=== PATIENT | male | born 1950 | race Caucasian/White ===

== ENCOUNTER 2024-02-26 14:29 | Observation (INO) | payer MEDICARE, BC, SELFPAY ==
[2024-02-26] VITALS (11 sets, daily range): BP systolic 113–164; BP diastolic 55–74; PULSE 75–93; RESP 11–23; TEMP 36.4–36.5; O2SAT 92–98; BMI 44.2
--- NOTE | 2024-02-26 | DI.MRI.S_ITS ---
PROCEDURE: MR CERVICAL SPINE WO CON INDICATIONS: check cervical hardware TECHNIQUE: Noncontrast sagittal T1 spin echo and T2 fast spin echo, sagittal STIR, foraminal oblique sagittal T2 fast spin echo, and axial gradient echo or T2 fast spin echo through the cervical spine. COMPARISON: Located Within [facility], CT, CT ANGIO HEAD AND NECK, 02/26/2024, 14:31. FINDINGS: Image quality: Diagnostic. Metal artifact reduction sequences were utilized due to pain of fusion hardware, with resulting decreased signal to noise ratio. Alignment and Curvature: There is mild reversal of the normal cervical lordosis. Grade 1 anterolisthesis is seen at C3-4 measuring 3 mm. Bone Marrow: Postsurgical changes are seen from prior C5 corpectomy and anterior fusion at C4 through C6. There is associated metal artifact that obscures adjacent structures. No acute osseous edema. Spinal Cord: Visualized spinal cord has normal size and signal. No cerebellar tonsillar herniation. Paraspinous Soft Tissues: No paravertebral masses. Prevertebral soft tissues are normal in thickness. C2-C3: Disc desiccation with posterior disc-osteophyte complex and bilateral uncovertebral joint and facet hypertrophy. Findings result in mild narrowing of the spinal canal as well as moderate to severe right and moderate left neural foraminal narrowing. C3-C4: Grade 1 anterolisthesis as well as posterior disc-osteophyte complex and bilateral uncovertebral joint and facet hypertrophy. Findings result in severe narrowing of the spinal canal with effacement of the dorsal and ventral CSF spaces. No definite [id number] cord signal is seen. There is also severe bilateral neural foraminal narrowing. C4-C5: Disc desiccation and posterior disc-osteophyte complex as well as uncovertebral joint and facet hypertrophy bilaterally. Findings result in moderate to severe narrowing of the spinal canal with effacement of the dorsal and ventral CSF spaces and no abnormal cord signal. There is severe bilateral neural foraminal narrowing. C5-C6: Postsurgical changes from prior corpectomy and anterior fixation. There is posterior disc-osteophyte complex and bilateral uncovertebral joint and facet hypertrophy the result in severe narrowing of the spinal canal with effacement of the dorsal and ventral CSF spaces but no abnormal cord signal. There is moderate to severe bilateral neural foraminal narrowing. C6-C7: Loss of disc space height with posterior disc-osteophyte complex and bilateral uncovertebral joint and facet hypertrophy. Findings result in moderate to severe narrowing of the spinal canal with effacement of the dorsal and ventral CSF spaces but no abnormal cord signal intensity. There is severe bilateral neural foraminal narrowing. C7-T1: Disc desiccation and mild circumferential disc bulging as well as mild bilateral facet hypertrophy. Findings result in mild narrowing of the spinal canal and as well as moderate left and mild right neural foraminal narrowing. IMPRESSION: 1. Postsurgical changes from C5 corpectomy and anterior fixation at C4 through C6. 2. Multilevel severe degenerative disc disease and facet hypertrophy as described in the tail and body of the report. 3. High-grade spinal canal stenosis is seen at C3-4 through C6-7. No acute cord edema identified. 4. Diffuse multifocal high-grade neural foraminal narrowing throughout the cervical spine. Approved by: Roberto Tejada M.D. on 02/26/2024 at 20:37
--- NOTE | 2024-02-26 14:31 | DI.CT.S_ITS ---
PROCEDURE: CT ANGIO HEAD AND NECK INDICATIONS: ataxia TECHNIQUE: After the administration of intravenous contrast, 1 mm thick sections acquired from the aortic arch through the [place]. 3-dimensional tekzowg-ldcbywcdv-cbwegojtrx (MIP) and/or volume rendering reformats were acquired of the central intracranial vasculature and neck separately. For radiation dose reduction, the following was used: automated exposure control, adjustment of mA and/or kV according to patient size. COMPARISON: [facility], CT, CT STROKE, 02/26/2024, 14:31. FINDINGS: Image quality: Limited by bolus timing. There is venous contamination seen within the intracranial circulation. Within the neck, the proximal common carotid arteries and the proximal vertebral arteries are poorly opacified. BRAIN: CSF spaces: Ventricles are normal in size and shape. Basal cisterns are patent. No extra-axial fluid collections. Brain: No significant abnormality of the brain can be seen. Skull and face: Calvarium and facial bones appear intact, without suspicious lesions. Orbits appear normal. Sinuses: Sinuses and mastoids are clear. HEAD CT ANGIOGRAPHY: Anterior circulation: Intracranial internal carotid arteries are normal in size and flow. The flow within the paired anterior cerebral arteries is normal and symmetric. The flow within the middle cerebral arteries is normal and symmetric. The anterior communicating artery is seen. No aneurysms are seen. Posterior circulation: Visualized portions of the vertebral arteries demonstrate normal caliber, and join to form a normal appearing basilar artery. There is a prominent right posterior communicating artery seen, with an accompanying diminutive right P1 segment. This is attributed to a type origin of the right posterior cerebral artery, which is considered to be a normal developmental variant of typically no clinical consequence. The flow within the posterior cerebral arteries is normal and symmetric. No aneurysms are seen. NECK CT ANGIOGRAPHY: Carotid system: The great vessels demonstrate a conventional anatomy as they arise from the aortic arch. The origins of the common carotid arteries appear patent. The common carotid arteries demonstrate normal caliber and courses. The bifurcation regions demonstrate atherosclerotic irregularity and calcification. There is 50% narrowing seen involving the origin of the left internal carotid artery. There is a kink within the left proximal internal carotid artery, with approximately 70% narrowing, as on series 9, image 104. No gustavo hemodynamically significant stenosis can be seen on the right-side. Posterior circulation: The origins of the vertebral arteries both appear widely patent. The more superior extracranial portions of both vertebral arteries also demonstrate normal courses and calibers. They join to form a normal appearing basilar artery. Soft tissues: Visualized neck soft tissues demonstrate no suspicious abnormalities. Bones: No suspicious bony lesions. Visualized cervical spine appears normally aligned. Cervical spine fixation hardware can be seen, with corpectomy at C5, with anterior screws spanning from the inferior aspect of C4 through the inferior aspect of C6. Moderate degenerative changes can be seen. IMPRESSION: No significant intracranial arterial abnormality is seen. 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 Additional findings: Cervical spine fixation hardware Cervical spine degenerative change Any quantitative measurements of stenosis were performed using NASCET criteria. Dictated by: Srikanth Hills M.D. on 02/26/2024 at 13:52 Approved by: Srikanth Hills M.D. on 02/26/2024 at 13:55
--- NOTE | 2024-02-26 14:32 | DI.CT.S_ITS ---
PROCEDURE: CT STROKE INDICATIONS: ataxia TECHNIQUE: Noncontrast 4.5 mm thick angled axial sections acquired from the foramen magnum to the vertex, with coronal reformats. For radiation dose reduction, the following was used: automated exposure control, adjustment of mA and/or kV according to patient size. COMPARISON: [facility], CT, CT ANGIO HEAD AND NECK, 02/26/2024, 14:31. FINDINGS: Image quality: Diagnostic. CSF spaces: Basal cisterns are patent. No extra-axial fluid collections. The ventricles are symmetric in size and shape. Brain: No intracranial bleeds or masses. There is cerebral volume loss for age, with resultant ventricular and sulcal prominence. There are periventricular and deep white matter chronic small vessel ischemic changes. There is intracranial internal carotid artery atherosclerosis. Skull and face: Calvarium and visualized facial bones appear intact, without suspicious lesions. Sinuses: Visualized sinuses and mastoids are clear. IMPRESSION: No acute intracranial hemorrhage is seen. No acute intracranial pathology. Note: Case discussed by telephone with Dr. Betancourt at 2:50 p.m. [place] time on February 26, 2024. This study fulfills neurological imaging criteria for inclusion or exclusion of acute stroke therapies based on available published neurological guidelines. Dictated by: Srikanth Hills M.D. on 02/26/2024 at 13:50 Approved by: Srikanth Hills M.D. on 02/26/2024 at 13:52
[2024-02-26 14:43] LABS: Add Manual Diff / Slide Review NO; Basophils Absolute Auto 100 /uL (0-100); Basophils Percent Auto 0.8 % (0-2); Eosinophils Absolute Auto 300 /uL (0-450); Eosinophils Percent Auto 2.7 % (2-4); Hematocrit 40.9 % (41-53); Hemoglobin 13.6 g/dL (13.5-17.5); Lymphocytes Absolute Auto 2700 /uL (1100-4500); Lymphocytes Percent Auto 25.9 % (25-40); Mean Corpuscular HGB Conc 33.3 % (30-36); Mean Corpuscular Hemoglobin 29.2 PG (26-34); Mean Corpuscular Volume 87.8 fL (80-100); Monocytes Absolute Auto 1000 /uL (0-900); Neutrophils Absolute Auto 6200 /uL (1500-7000); Neutrophils Percent Auto 60.6 % (50-75); Platelet Count 313 X10^3/uL (150-400); Red Blood Cell Count 4.66 X10^6/uL (4.5-5.9); Red Cell Distribution Width 15.1 % (11.6-14.8); White Blood Cell Count 10.3 X10^3/uL (4.5-11.0)
[2024-02-26 14:48] LABS: INR 0.9 (0.9-1.3); Prothrombin Time 10.6 SECONDS (9.4-12.5)
[2024-02-26 14:51] LABS: PTT Partial Thromboplastin Tim 29 SECONDS (25.1-36.5)
[2024-02-26] MEDS: SODIUM CHLORIDE 0.9% 500 ML 1000 ML IV (14:55)
[2024-02-26 15:02] LABS: Alanine Aminotransferase 22 IU/L (<50); Albumin 4.9 g/dL (3.5-5.0); Albumin Globulin Ratio 1.6 (1.0-2.8); Alkaline Phosphatase 64 U/L (38-126); Aspartate Aminotransferase 26 IU/L (17-59); Bilirubin Total 0.5 mg/dL (0.2-1.3); Blood Urea Nitrogen 37 mg/dL (9-20); Calcium 9.3 mg/dL (8.4-10.2); Carbon Dioxide 18 mmol/L (22-32); Chloride 107 mmol/L (98-107); Creatine Kinase 189 U/L (55-170); Estimated Glomerular Filt Rate 33 mL/min (>60); Globulin 3.1 g/dL (1.7-4.1); Glucose 153 mg/dL (80-110); HEMOLYSIS 24 (0-50); Sodium 140 mmol/L (137-145)
[2024-02-26 15:12] LABS: Troponin I < 0.012 ng/mL (0.01-0.034)
[2024-02-26] MEDS: ASPIRIN EC 325 MG TABLET PO (15:42)
[2024-02-26] MEDS: CLOPIDOGREL 75 MG TABLET 300 MG PO (15:42)
--- NOTE | 2024-02-26 16:26 | ED.NEUROSD ---
HPI - Neuro Symptoms/Deficit General Chief Complaint: Neuro Symptoms/Deficit Stated Complaint: stroke--cant stand Time Seen by Provider: 02/26/24 14:31 Source: patient and EMS Mode of arrival: EMS History of Present Illness HPI Narrative: Patient brought in by ambulance for dizziness ataxia. Symptoms have improved. Blood sugar 137. No prior history of stroke. Patient states he got up to go outside while visiting friends. He states he felt dizzy. Nauseous. Did not feel like the room was spinning or he was spinning. Just felt like his legs would not work. Symptoms now have resolved. Fast exam is negative. Patient did have vomiting with EMS. Now has resolved. Code stroke was activated On Anticoagulants: No Related Data Home Medications Medication Instructions Recorded Confirmed diclofenac sodium 1 % topical gel 2 g topical QID 02/26/24 02/26/24 diclofenac sodium 75 mg 75 mg PO BID 02/26/24 02/26/24 tablet,delayed release famotidine 20 mg tablet 20 mg PO DAILY 02/26/24 02/26/24 gabapentin 300 mg capsule 300 mg PO BID 02/26/24 02/26/24 latanoprost 0.005 % eye drops 1 drp EYE-BOTH BEDTIME 02/26/24 02/26/24 lisinopril 40 mg tablet 40 mg PO DAILY 02/26/24 02/26/24 metformin 1,000 mg tablet 1,000 mg PO BID 02/26/24 02/26/24 omeprazole 20 mg capsule,delayed 20 mg PO DAILY 02/26/24 02/26/24 release pravastatin 20 mg tablet 20 mg PO BEDTIME 02/26/24 02/26/24 Previous Rx's Medication Instructions Recorded aspirin 81 mg tablet,delayed 81 mg PO DAILY #30 tabs 02/27/24 release clopidogrel 75 mg tablet 75 mg PO DAILY 19 days #19 tabs 02/27/24 Allergies Allergy/AdvReac Type Severity Reaction Status Date / Time Sulfa (Sulfonamide Allergy Verified 02/26/24 14:56 Antibiotics) sulfamethoxazole Allergy Verified 02/26/24 14:56 [From Bactrim] trimethoprim [From Bactrim] Allergy Verified 02/26/24 14:56 Review of Systems Review of Systems Narrative: GENERAL: negative chills, fatigue, malaise, fever, sweats. HEENT: negative sinus pain, ear pain, sore throat RESPIRATORY: negative dyspnea, cough CARDIOVASCULAR: negative chest pain, palpitations GASTROINTESTINAL: negative nausea, vomiting, abdominal pain : negative dysuria, frequency, hematuria MUSCULOSKELETAL: negative muscle or bony pain SKIN: negative rash, skin lesions NEUROLOGIC: negative weakness, numbness, positive dizziness no slurred speech no facial droop ROS Unobtainable: All systems reviewed & are unremarkable except as noted in HPI and below Hematologic/Lymphatic On Anticoagulants: No Patient History Medical History (Updated 02/26/24 @ 17:44 by Vernell Sarah RN) Ocular hypertension Hypertension Diabetes mellitus Hyperlipemia Skin cancer Bladder cancer Carpal tunnel syndrome, bilateral Rotator cuff arthropathy of right shoulder Neck problem Surgical History (Updated 02/26/24 @ 17:41 by Vernell Sarah RN) Status post prostatectomy Status post fusion of wrist History of ankle fusion History of total knee arthroplasty Status post hip replacement Social History household members: spouse Smoking Status: Former smoker alcohol intake: current Smoking Status: Former smoker alcohol intake frequency: a few times a week Substance Use Type: does not use Exam Narrative Exam Narrative: GENERAL: in no distress, not toxic not dyspneic HEAD: Normocephalic. EYES: Pupils equal round ENT: Mucous membranes moist. NECK: Trachea midline. CARDIOVASCULAR: Regular rate and rhythm RESPIRATORY: Clear to auscultation. Breath sounds equal bilaterally. No wheezes, rales, or rhonchi. GASTROINTESTINAL: Abdomen soft, non-tender EXTREMITIES: No gross deformities. BACK: No flank tenderness. NEURO: AOx4. Clear speech no facial droop. ?Light touch intact to bilateral face hands and feet. 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 ?Strong bilateral patellar reflexes. ?No pronator drift. ?Ncojrz-pr-btjo intact bilaterally. Gcdj-qb-ionz intact bilaterally but feels weaker with left heel. SKIN: Warm and dry PSYCH: Not anxious, is cooperative Initial Vital Signs Initial Vital Signs: Vital Signs Temperature 97.6 F 02/26/24 14:28 Pulse Rate 90 02/26/24 14:28 Respiratory Rate 20 02/26/24 14:28 Blood Pressure 164/73 H 02/26/24 14:28 Pulse Oximetry 95 02/26/24 14:28 Oxygen Delivery Method Room Air 02/26/24 14:28 Scores NIH Stroke Scale Level of Conciousness: Alert, keenly responsive Ask month/age: Answers both questions correctly. Open/close eyes, close hand: Performs both tasks correctly Best gaze horizontal: Normal Visual forde: No visual loss Facial palsy: Normal symetrical movement Left arm drift: No drift for full 10 sec Right arm drift: No drift for full 10 sec Left leg drift: No drift for full 5 sec Right leg drift: No drift for full 5 sec Limb ataxia: Present in one limb Sensory on face/arms/legs: Normal, no sensory loss Best language: No aphasia, normal Dysarthria: Normal Extinction or inattention: No abnormality Total NIH Stroke scale score: 1 Course Orders Ordered: Discontinued Medications Acetaminophen (Acetaminophen 325 Mg Tablet) 650 mg PO Q6H PRN PRN Reason: Fever/Mild Pain (1-3) Aspirin (Aspirin Ec 325 Mg Tablet) 325 mg PO NOW ONE Stop: 02/26/24 15:12 Last Admin: 02/26/24 15:42 Dose: 325 mg Documented By: LUCÍA Aspirin (Aspirin Ec 81 Mg Tablet) 81 mg PO DAILY [facility] Last Admin: 02/27/24 08:21 Dose: 81 mg Documented By: JUMANA Atorvastatin Calcium (Atorvastatin 20 Mg Tablet) 40 mg PO BEDTIME [facility] Last Admin: 02/26/24 21:57 Dose: 40 mg Documented By: BLACK Clopidogrel Bisulfate (Clopidogrel 75 Mg Tablet) 300 mg PO NOW ONE Stop: 02/26/24 15:12 Last Admin: 02/26/24 15:42 Dose: 300 mg Documented By: LUCÍA Clopidogrel Bisulfate (Clopidogrel 75 Mg Tablet) 75 mg PO DAILY [facility] Stop: 03/18/24 08:59 Last Admin: 02/27/24 08:21 Dose: 75 mg Documented By: JUMANA Diclofenac Sodium (Diclofenac 1% Gel 100 Gm) 1 applic TOP QID [facility] Last Admin: 02/27/24 10:45 Dose: Not Given Documented By: JUMANA Famotidine (Famotidine 20 Mg Tablet) 20 mg PO DAILY [facility] Last Admin: 02/27/24 08:21 Dose: 20 mg Documented By: JUMANA Gabapentin (Gabapentin 300 Mg Capsule) 300 mg PO BID [facility] Last Admin: 02/27/24 08:21 Dose: 300 mg Documented By: Admin: 02/26/24 21:57 Dose: 300 mg Documented By: BLACK Heparin Sodium (Porcine) (Heparin 5,000 Unit/Ml Vial) 5,000 unit SUBCUT BID [facility] Last Admin: 02/27/24 08:22 Dose: 5,000 unit Documented By: Admin: 02/26/24 21:57 Dose: 5,000 unit Documented By: BLACK Sodium Chloride (Normal Saline 0.9%) 500 mls @ 1,000 mls/hr IV BOLUS ONE Stop: 02/26/24 15:00 Last Infusion: 02/26/24 16:02 Dose: Infused Documented By: Admin: 02/26/24 14:55 Dose: 1,000 mls/hr Documented By: LUCÍA Sodium Chloride (Normal Saline 0.9%) 1,000 mls @ 100 mls/hr IV CONT [facility] Stop: 02/27/24 05:44 Last Admin: 02/26/24 18:23 Dose: 100 mls/hr Documented By: JUMANA Labetalol HCl (Labetalol 20 Mg/4 Ml Syringe) 10 mg IV Q5MIN PRN PRN Reason: SBP >220 or DBP >110 Latanoprost (Latanoprost 0.005% Ophth 2.5 Ml) 1 drops EYE-BOTH BEDTIME [facility] Last Admin: 02/26/24 21:57 Dose: Not Given Documented By: BLACK Melatonin (Melatonin 3 Mg Tablet) 6 mg PO BEDTIME PRN PRN Reason: Insomnia Naloxone HCl (Naloxone 0.4 Mg/Ml Vial) 0.2 mg IV Q2MIN PRN PRN Reason: Opiate Reversal Ondansetron HCl (Ondansetron 4 Mg/2 Ml Inj) 4 mg IV Q4HR PRN PRN Reason: Nausea And Vomiting Polyethylene Glycol (Polyethylene Glycol 3350 17 Gm Powd.Pack) 17 gm PO DAILY PRN PRN Reason: Constipation Sennosides (Sennosides 8.6 Mg Tablet) 8.6 mg PO BID PRN PRN Reason: Constipation Vital Signs Vital signs: Vital Signs - 8 hr 02/26/24 14:28 Temperature 97.6 F Pulse Rate 90 Respiratory Rate 20 Blood Pressure 164/73 H Pulse Oximetry 95 Oxygen Delivery Method Room Air MDM - Neuro Symptoms/Deficit Lab Data 02/27/24 04:59 02/27/24 04:59 Labs: Lab Results 02/26/24 Range/Units 14:39 WBC 10.3 (4.5-11.0) X10^3/uL RBC 4.66 (4.5-5.9) X10^6/uL Hgb 13.6 (13.5-17.5) g/dL Hct 40.9 L (41-53) % MCV 87.8 (80-100) fL MCH 29.2 (26-34) PG MCHC 33.3 (30-36) % RDW 15.1 H (11.6-14.8) % Plt Count 313 (150-400) X10^3/uL Neut % (Auto) 60.6 (50-75) % Lymph % (Auto) 25.9 (25-40) % [place] % (Auto) 10.0 (3-14) % Eos % (Auto) 2.7 (2-4) % Baso % (Auto) 0.8 (0-2) % Neut # (Auto) 6200 (1477-3101) /uL Lymph # (Auto) 2700 (2120-9601) /uL [place] # (Auto) 1000 H (0-900) /uL Eos # (Auto) 300 (0-450) /uL Baso # (Auto) 100 (0-100) /uL PT 10.6 (9.4-12.5) SECONDS INR 0.9 (0.9-1.3) APTT 29 (25.1-36.5) SECONDS Sodium 140 (137-145) mmol/L Potassium 5.0 (3.4-5.1) mmol/L Chloride 107 (98-107) mmol/L Carbon Dioxide 18 L (22-32) mmol/L BUN 37 H (9-20) mg/dL Creatinine 2.05 H (0.66-1.25) mg/dL Estimated GFR 33 L (>60) mL/min BUN/Creatinine Ratio 18.0 (6-22) Glucose 153 H (80-110) mg/dL Hemoglobin A1c 5.5 (4.0-6.0) % Calcium 9.3 (8.4-10.2) mg/dL Total Bilirubin 0.5 (0.2-1.3) mg/dL AST 26 (17-59) IU/L ALT 22 (<50) IU/L Alkaline Phosphatase 64 (38-126) U/L Total Creatine Kinase 189 H (55-170) U/L Troponin I < 0.012 (0.01-0.034) ng/mL Total Protein 8.0 (6.3-8.2) g/dL Albumin 4.9 (3.5-5.0) g/dL Globulin 3.1 (1.7-4.1) g/dL Albumin/Globulin Ratio 1.6 (1.0-2.8) Triglycerides 278 H (35-150) mg/dL Cholesterol 138 L (140-199) mg/dL LDL Cholesterol, Calc 46 (<100) mg/dL HDL Cholesterol 36 L (40-60) mg/dL TSH 8.00 H (0.47-4.68) uIU/mL Free T4 0.94 (0.78-2.19) ng/dL Imaging Data CT scan - head: Radiologist's Impression: [address] [address] [address] Scan Report Signed Patient: Johan Thomas MR#: [id number] : 1950 Acct:[id number] Age/Sex: 73 / M Date of Service: 02/26/24 Loc: ED Accession Number: [id number] Procedure: CT Stroke Ordering Provider: Blair Betancourt MD PROCEDURE: CT STROKE INDICATIONS: ataxia TECHNIQUE: Noncontrast 4.5 mm thick angled axial sections acquired from the foramen magnum to the vertex, with coronal reformats. For radiation dose reduction, the following was used: automated exposure control, adjustment of mA and/or kV according to patient size. COMPARISON: , CT, CT ANGIO HEAD AND NECK, 02/26/2024, 14:31. FINDINGS: Image quality: Diagnostic. CSF spaces: Basal cisterns are patent. No extra-axial fluid collections. The ventricles are symmetric in size and shape. Brain: No intracranial bleeds or masses. There is cerebral volume loss for age, with resultant ventricular and sulcal prominence. There are periventricular and deep white matter chronic small vessel ischemic changes. There is intracranial internal carotid artery atherosclerosis. Skull and face: Calvarium and visualized facial bones appear intact, without suspicious lesions. Sinuses: Visualized sinuses and mastoids are clear. IMPRESSION: No acute intracranial hemorrhage is seen. No acute intracranial pathology. Note: Case discussed by telephone with Dr. Betancourt at 2:50 p.m. [place] time on February 26, 2024. This study fulfills neurological imaging criteria for inclusion or exclusion of acute stroke therapies based on available published neurological guidelines. Dictated by: Srikanth Hills M.D. on 02/26/2024 at 13:50 Approved by: Srikanth Hills M.D. on 02/26/2024 at 13:52 CTA - brain/neck: Radiologist's Impression: [address] [address] [address] Scan Report Signed Patient: Johan Thomas MR#: [id number] : 1950 Acct:[id number] Age/Sex: 73 / M Date of Service: 02/26/24 Loc: ED Accession Number: [id number] Procedure: CT angio head and neck Ordering Provider: Blair Betancourt MD PROCEDURE: CT ANGIO HEAD AND NECK INDICATIONS: ataxia TECHNIQUE: After the administration of intravenous contrast, 1 mm thick sections acquired from the aortic arch through the [place]. 3-dimensional psnaubh-eljhnjman-hyzbkygyji (MIP) and/or volume rendering reformats were acquired of the central intracranial vasculature and neck separately. For radiation dose reduction, the following was used: automated exposure control, adjustment of mA and/or kV according to patient size. COMPARISON: , CT, CT STROKE, 02/26/2024, 14:31. FINDINGS: Image quality: Limited by bolus timing. There is venous contamination seen within the intracranial circulation. Within the neck, the proximal common carotid arteries and the proximal vertebral arteries are poorly opacified. BRAIN: CSF spaces: Ventricles are normal in size and shape. Basal cisterns are patent. No extra-axial fluid collections. Brain: No significant abnormality of the brain can be seen. Skull and face: Calvarium and facial bones appear intact, without suspicious lesions. Orbits appear normal. Sinuses: Sinuses and mastoids are clear. HEAD CT ANGIOGRAPHY: Anterior circulation: Intracranial internal carotid arteries are normal in size and flow. The flow within the paired anterior cerebral arteries is normal and symmetric. The flow within the middle cerebral arteries is normal and symmetric. The anterior communicating artery is seen. No aneurysms are seen. Posterior circulation: Visualized portions of the vertebral arteries demonstrate normal caliber, and join to form a normal appearing basilar artery. There is a prominent right posterior communicating artery seen, with an accompanying diminutive right P1 segment. This is attributed to a type origin of the right posterior cerebral artery, which is considered to be a normal developmental variant of typically no clinical consequence. The flow within the posterior cerebral arteries is normal and symmetric. No aneurysms are seen. NECK CT ANGIOGRAPHY: Carotid system: The great vessels demonstrate a conventional anatomy as they arise from the aortic arch. The origins of the common carotid arteries appear patent. The common carotid arteries demonstrate normal caliber and courses. The bifurcation regions demonstrate atherosclerotic irregularity and calcification. There is 50% narrowing seen involving the origin of the left internal carotid artery. There is a kink within the left proximal internal carotid artery, with approximately 70% narrowing, as on series 9, image 104. No gustavo hemodynamically significant stenosis can be seen on the right-side. Posterior circulation: The origins of the vertebral arteries both appear widely patent. The more superior extracranial portions of both vertebral arteries also demonstrate normal courses and calibers. They join to form a normal appearing basilar artery. Soft tissues: Visualized neck soft tissues demonstrate no suspicious abnormalities. Bones: No suspicious bony lesions. Visualized cervical spine appears normally aligned. Cervical spine fixation hardware can be seen, with corpectomy at C5, with anterior screws spanning from the inferior aspect of C4 through the inferior aspect of C6. Moderate degenerative changes can be seen. IMPRESSION: No significant intracranial arterial abnormality is seen. 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 Additional findings: Cervical spine fixation hardware Cervical spine degenerative change Any quantitative measurements of stenosis were performed using NASCET criteria. Dictated by: Srikanth Hills M.D. on 02/26/2024 at 13:52 Approved by: Srikanth Hills M.D. on 02/26/2024 at 13:55 [facility] Narrative Medical decision making narrative: Patient brought in by ambulance for dizziness ataxia. Symptoms have improved. Blood sugar 137. No prior history of stroke. Patient states he got up to go outside while visiting friends. He states he felt dizzy. Nauseous. Did not feel like the room was spinning or he was spinning. Just felt like his legs would not work. Symptoms now have resolved. Fast exam is negative. Patient did have vomiting with EMS. Now has resolved. Code stroke was activated After history and exam CT head CT angiogram head and neck neuro consult CBC CMP EKG normal saline [facility] Medical records reviewed: No recent visit for this complaint Differential considered: Includes but not limited to TIA stroke vertigo Lab Test results independently reviewed as above. Pertinent findings: Independently reviewed EKG normal sinus rhythm rate [address] elevation or depression Imaging studies independently reviewed: CT head no acute finding, CT angiogram head and neck there is a kink in the left carotid artery with setting% stenosis Consultations: 2:45 p.m.. Spoke with radiologist head CT without contrast no acute finding 3:00 p.m. spoke with [facility] neurology, dr garcia, she recommends aspirin Plavix MRI admission observation echocardiogram, no tPA indicated at this time given clinical presentation. Symptoms have essentially resolved 4:30 p.m.. Spoke with hospitalist, Dr. Meraz, agrees for admission and MRI of cervical spine and MRI brain and echocardiogram and antiplatelets Treatments: Aspirin Plavix normal saline Re-evaluations: 4:40 p.m.. Updated patient and family results. Patient is asymptomatic now. Feels much better. They do understand and agree for admission for balance of workup. He does have a cervical mesh from cervical surgery was she does not know is amenable with MRI. However he does need to be observed and echocardiogram needs to be done as well Discussion: Appropriate for admission for balance of workup of TIA. Patient is at baseline now. No symptoms. I did review with [facility] neurology as well as hospitalist here for admission. Patient and family agree. For admission. Diagnosis: TIA Discharge Plan Departure Patient Disposition: Admitted as Observation Clinical Impression: Transient cerebral ischemia Qualifiers: Transient cerebral ischemia type: unspecified Qualified Code(s): G45.9 - Transient cerebral ischemic attack, unspecified Admit Date/Time: 02/26/24 16:36 Admit Provider: Stephen Meraz
--- NOTE | 2024-02-26 17:39 | DI.ECHO.S_ITS ---
[facility] +---------+ : : [address] : : : : [id number] : : : : Phone: [phone] Echocardiogram Report + + :Name: EDNA RINALDI Study Date: 02/27/2024 Height: 63 in : [facility] ReadingLocation: Weight: 250 lb : : Gender: Male BSA: 2.1 m2 : :: 1950 Age: 73 yrs BP: 109/48 mmHg: :Reason For Study: TIA : :Ordering Physician: NENA, : :HIMA Harris Performed By: Krys Aguilera : :Referring: HIMA BARRETT : + + Interpretation Summary The left ventricle is normal in size and wall thickness. Left ventricular systolic function appears normal without focal wall motion abnormalities. The ejection fraction is estimated to be 55-60%. Diastolic parameters suggest probable normal left ventricular diastolic function and normal filling pressures. The right ventricle is grossly normal size. The right ventricular systolic function is normal. The right ventricular systolic pressure is estimated to be at least 45 mmHg based on an estimated right atrial pressure of 3 mm Hg. The left atrial size is normal. Right atrial size is normal. There is no significant valvular heart disease. The aortic root is normal size. Procedure: A two-dimensional transthoracic echocardiogram with color flow and Doppler was performed. The study quality was technically adequate. There is no prior echocardiogram noted for this patient. The patient was in sinus rhythm with heart rates between 74-90 bpm during the exam. Left Ventricle: The left ventricle is normal in size and wall thickness. Left ventricular systolic function appears normal without focal wall motion abnormalities. The ejection fraction is estimated to be 55-60%. Diastolic parameters suggest probable normal left ventricular diastolic function and normal filling pressures. Right Ventricle: The right ventricle is grossly normal size. The right ventricular systolic function is normal. Atria: The left atrial size is normal. Right atrial size is normal. There is no Doppler evidence for an interatrial shunt. Mitral Valve: The mitral valve is normal in structure and function. There is trace mitral regurgitation. Aortic Valve: The aortic valve is trileaflet. The aortic valve is slightly calcified. There is no aortic valve stenosis. No aortic regurgitation is present. Tricuspid Valve: The tricuspid valve is normal in structure and function. There is mild tricuspid regurgitation. The right ventricular systolic pressure is estimated to be at least 45 mmHg based on an estimated right atrial pressure of 3 mm Hg. Pulmonic Valve: The pulmonic valve leaflets are thin and pliable; valve motion is normal. There is no pulmonic valvular regurgitation. There is no significant valvular heart disease. Great Vessels: The aortic root is normal size. The dimensions of the ascending aorta are normal. The IVC is of normal diameter and collapses greater than 50% with a sniff. This suggests a low right atrial pressure of 3 mm Hg. Pericardium/ Pleura There is no pericardial effusion. There is no pleural effusion. MMode/2D Measurements & Calculations LVIDd: 5.7 cm LVOT diam: 2.1 cm LVIDs: 3.7 cm Ao root diam: 3.4 cm FS: 35.5 % asc Aorta Diam: 3.4 cm IVSd: 0.83 cm Ao Arch Diam (Prox Trans): 2.1 cm LVPWd: 0.99 cm LV marvin. diameter/BSA (cm/m^2): 2.7 LV sys. diameter/BSA (cm/m^2): 1.7 LA A2 area: 17.8 cm2 RA long axis: 5.6 cm LA A4 area: 20.1 cm2 RA area: 19.6 cm2 LA length (vol): 5.7 cm RA vol: 58.8 ml LA vol: 53.5 ml RA : 27.7 ml/m2 LA vol index: 25.2 ml/m2 IVC diam: 1.8 cm TAPSE: 2.4 cm Doppler Measurements & Calculations Ao V2 max: 168.4 cm/sec LVOT Max Ty: 100.4 cm/sec Ao V2 mean: 119.1 cm/sec LV V1 max P.0 mmHg Ao max P.3 mmHg LV V1 VTI: 17.7 cm Ao mean P.4 mmHg YARELIS(I,D): 1.9 cm2 Ao V2 VTI: 32.0 cm YARELIS(V,D): 2.1 cm2 sev ratio: 0.55 YARELIS indexed to BSA (cm^2/m^2): 0.91 MV E max ty: 107.5 cm/sec TR max ty: 323.1 cm/sec MV A max ty: 98.9 cm/sec TR max P.8 mmHg MV E/A: 1.1 PA V2 max: 103.2 cm/sec Med Peak E' Ty: 6.6 cm/sec PA V2 mean: 72.3 cm/sec E/E' med: 16.2 PA mean P.3 mmHg Lat Peak E' Ty: 13.2 cm/sec PA pr(Accel): 1.9 mmHg E/E' lat: 8.1 E/e' average: 12.2 MV dec time: 0.23 sec SV(LVOT): 62.1 ml Reading Physician:08:42 AM
--- NOTE | 2024-02-26 17:45 | DI.MRI.S_ITS ---
PROCEDURE: MR HEAD/BRAIN WO CON INDICATIONS: TIA TECHNIQUE: Non-contrast axial T1 spin echo, axial T2 fast spin echo, sagittal and axial FLAIR, coronal T2 fast spin echo, axial gradient echo, axial diffusion and ADC through the brain. COMPARISON: [facility], CT, CT STROKE, 02/26/2024, 14:31. FINDINGS: Image quality: Excellent. CSF spaces: Ventricles appear symmetric in size and shape. Basal cisterns are patent. No extra-axial fluid collections. Brain: No acute intracranial hemorrhage or mass effect. There is cerebral volume loss for age. There are minimal periventricular and deep white matter chronic small vessel ischemic changes. Brainstem appears normal. Diffusion-weighted images show no acute infarct. No chronic ischemic insults. Normal intravascular flow voids are present. Skull and face: Calvarial bone marrow is normal in signal. Orbits are normal. Sinuses: Sinuses and mastoids are clear. IMPRESSION: No acute intracranial hemorrhage or recent infarct. Approved by: Roberto Tejada M.D. on 02/26/2024 at 20:21
[2024-02-26 18:15] LABS: Cholesterol 138 mg/dL (140-199); HDL Cholesterol 36 mg/dL (40-60); LDL Cholesterol Calculated 46 mg/dL (<100); Triglycerides 278 mg/dL (35-150)
[2024-02-26] MEDS: SODIUM CHLORIDE 0.9% 1,000 ML 100 ML IV (18:23)
--- NOTE | 2024-02-26 18:55 | P.HP_ITS ---
History of Present Illness History of Present Illness Date Patient Seen: 02/26/24 Chief complaint: stroke--cant stand Narrative: Johan Thomas is a 73 YO M with a history of HTN, DM2, dyslipidemia, spinal stenosis s/p cervical fusion, ocular HTN, bladder cancer, and obstructive sleep apnea. He is presenting today with s/s of a TIA. He was eating lunch and started to feel warm, after that he became diaphoretic began experiencing severe nausea and had ataxic gait. He was brought in to the ED via ambulance. Patient denies fever, vomiting, headache, CP, or SOB. His symptoms have now resolved. [facility] Medical History (Updated 02/26/24 @ 17:44 by Vernell Sarah, SILVA) Ocular hypertension Hypertension Diabetes mellitus Hyperlipemia Skin cancer Bladder cancer Carpal tunnel syndrome, bilateral Rotator cuff arthropathy of right shoulder Neck problem Surgical History (Updated 02/26/24 @ 17:41 by Vernell Sarah RN) Status post prostatectomy Status post fusion of wrist History of ankle fusion History of total knee arthroplasty Status post hip replacement Social History household members: spouse Smoking Status: Former smoker alcohol intake: current Meds Home Medications and Allergies Home Medications Medication Instructions Recorded Confirmed Type diclofenac sodium 1 % topical gel 2 g topical QID 02/26/24 02/26/24 History diclofenac sodium 75 mg 75 mg PO BID 02/26/24 02/26/24 History tablet,delayed release famotidine 20 mg tablet 20 mg PO DAILY 02/26/24 02/26/24 History gabapentin 300 mg capsule 300 mg PO BID 02/26/24 02/26/24 History latanoprost 0.005 % eye drops 1 drp EYE-BOTH BEDTIME 02/26/24 02/26/24 History lisinopril 40 mg tablet 40 mg PO DAILY 02/26/24 02/26/24 History metformin 1,000 mg tablet 1,000 mg PO BID 02/26/24 02/26/24 History omeprazole 20 mg capsule,delayed 20 mg PO DAILY 02/26/24 02/26/24 History release pravastatin 20 mg tablet 20 mg PO BEDTIME 02/26/24 02/26/24 History Allergies Allergy/AdvReac Type Severity Reaction Status Date / Time Sulfa (Sulfonamide Allergy Verified 02/26/24 14:56 Antibiotics) sulfamethoxazole Allergy Verified 02/26/24 14:56 [From Bactrim] trimethoprim [From Bactrim] Allergy Verified 02/26/24 14:56 Review of Systems Review of Systems Narrative: All other systems reviewed with the patient and are negative unless otherwise stated. Exam Vital Signs (past 8 hours): - 02/26/24 14:28 02/26/24 14:42 02/26/24 14:43 Temperature 97.6 F Pulse Rate 90 93 H 91 H Respiratory Rate 20 15 Blood Pressure 164/73 H Pulse Oximetry 95 95 96 Oxygen Delivery Method Room Air Oxygen Flow Rate 02/26/24 14:43 02/26/24 15:00 02/26/24 15:00 Temperature Pulse Rate 86 Respiratory Rate 20 Blood Pressure 164/73 H 146/68 H Pulse Oximetry 92 Oxygen Delivery Method Oxygen Flow Rate 02/26/24 15:30 02/26/24 15:30 02/26/24 16:00 Temperature Pulse Rate 77 83 Respiratory Rate 12 17 Blood Pressure 141/67 H Pulse Oximetry 92 95 Oxygen Delivery Method Oxygen Flow Rate 02/26/24 16:00 02/26/24 16:30 02/26/24 16:30 Temperature Pulse Rate 75 Respiratory Rate 11 L Blood Pressure 134/74 130/67 Pulse Oximetry Oxygen Delivery Method Oxygen Flow Rate 02/26/24 16:49 02/26/24 17:00 02/26/24 17:00 Temperature 97.6 F Pulse Rate 75 Respiratory Rate 23 Blood Pressure 132/74 Pulse Oximetry 93 Oxygen Delivery Method CPAP Oxygen Flow Rate 02/26/24 17:45 02/26/24 17:47 Temperature 97.5 F L 97.5 F L Pulse Rate 87 87 Respiratory Rate 16 16 Blood Pressure 138/55 L 138/55 L Pulse Oximetry 98 98 Oxygen Delivery Method Oxygen Flow Rate 0 Oxygen Delivery Method CPAP Oxygen Flow Rate 0 Narrative Exam Narrative: GEN: NAD, sitting upright and answers questions appropriately CV: RRR, no murmurs PULM: clear to auscultation b/l NEURO: alert and oriented times 3. Cranial nerves II-XII are intact Objective Labs 02/27/24 04:59 02/27/24 04:59 Labs: Laboratory Results - last 24 hr 02/26/24 14:39 WBC 10.3 RBC 4.66 Hgb 13.6 Hct 40.9 L MCV 87.8 MCH 29.2 MCHC 33.3 RDW 15.1 H Plt Count 313 Neut % (Auto) 60.6 Lymph % (Auto) 25.9 [place] % (Auto) 10.0 Eos % (Auto) 2.7 Baso % (Auto) 0.8 Neut # (Auto) 6200 Lymph # (Auto) 2700 [place] # (Auto) 1000 H Eos # (Auto) 300 Baso # (Auto) 100 PT 10.6 INR 0.9 APTT 29 Sodium 140 Potassium 5.0 Chloride 107 Carbon Dioxide 18 L BUN 37 H Creatinine 2.05 H Estimated GFR 33 L BUN/Creatinine Ratio 18.0 Glucose 153 H Calcium 9.3 Total Bilirubin 0.5 AST 26 ALT 22 Alkaline Phosphatase 64 Total Creatine Kinase 189 H Troponin I < 0.012 Total Protein 8.0 Albumin 4.9 Globulin 3.1 Albumin/Globulin Ratio 1.6 Triglycerides 278 H Cholesterol 138 L LDL Cholesterol, Calc 46 HDL Cholesterol 36 L TSH 8.00 H Assessment & Plan Assessment & Plan narrative: # possible TIA -Monitor for any residual neurologic deficits, NIH 1 in ED -Start Aspirin and plavix -Allow permissive HTN- hold home Lisinopril -MRI brain and cervical spine -Check A1c and lipid panel -Echocardiogram pending -CTA showed 70% narrowing of the left carotid artery, ASA/statin as above # PABLO versus CKD -creatinine 2, baseline unknown -IVF and monitor # SHITAL -continue CPAP # HTN -holding lisinopril for now # DM2 -hold metformin -SSI # HLD -LDL in good range -continue statin # cervical stenosis -tele neuro recommended MRI cervical -f/up MRI -continue gabapentin Code status is full code. DVT prophylaxis with heparin. Proxy is . I have reviewed home meds and used all available resources to reconcile the home meds. Case discussed with ED physician/APC and patient will be admitted to the hospitalist service for further workup and management. This patient will be admitted as observation and will require less than 2 midnights of hospital time to treat TIA. Quality VTE Deep Vein Thrombosis/Pulmonary Embolism Present on Admission: No
[2024-02-26 19:25] LABS: Hemoglobin A1C% w Est Avg Glu 5.5 % (4.0-6.0)
[2024-02-26] MEDS: ATORVASTATIN 20 MG TABLET 40 MG PO (21:57)
[2024-02-26] MEDS: HEPARIN 5,000 UNIT/ML VIAL 5000 UNIT SUBCUT (21:57)
[2024-02-26] MEDS: GABAPENTIN 300 MG CAPSULE PO (21:57)
[2024-02-27 00:10] VITALS: BP 104/52; PULSE 69; RESP 19; TEMP 36.2; O2SAT 97
[2024-02-27 04:45] VITALS: BP 109/48; PULSE 72; RESP 19; TEMP 36.5; O2SAT 95
[2024-02-27 05:37] LABS: Add Manual Diff / Slide Review NO; Basophils Absolute Auto 0 /uL (0-100); Basophils Percent Auto 0.6 % (0-2); Eosinophils Absolute Auto 100 /uL (0-450); Eosinophils Percent Auto 1.7 % (2-4); Hemoglobin 11.7 g/dL (13.5-17.5); Lymphocytes Absolute Auto 1100 /uL (1100-4500); Lymphocytes Percent Auto 15.7 % (25-40); Mean Corpuscular HGB Conc 33.4 % (30-36); Mean Corpuscular Hemoglobin 29.2 PG (26-34); Mean Corpuscular Volume 87.3 fL (80-100); Monocytes Absolute Auto 600 /uL (0-900); Monocytes Percent Auto 8.8 % (3-14); Neutrophils Absolute Auto 5300 /uL (1500-7000); Neutrophils Percent Auto 73.2 % (50-75); Platelet Count 216 X10^3/uL (150-400); Red Blood Cell Count 4.01 X10^6/uL (4.5-5.9); Red Cell Distribution Width 15.3 % (11.6-14.8); White Blood Cell Count 7.2 X10^3/uL (4.5-11.0)
[2024-02-27 05:49] LABS: BUN Creatinine Ratio 25.6 (6-22); Blood Urea Nitrogen 34 mg/dL (9-20); Calcium 8.9 mg/dL (8.4-10.2); Carbon Dioxide 25 mmol/L (22-32); Chloride 107 mmol/L (98-107); Estimated Glomerular Filt Rate 56 mL/min (>60); Glucose 94 mg/dL (80-110); HEMOLYSIS < 15 (0-50); Potassium 4.9 mmol/L (3.4-5.1); Sodium 137 mmol/L (137-145)
[2024-02-27 08:00] VITALS: BP 146/61; PULSE 79; RESP 16; TEMP 36.6; O2SAT 98
[2024-02-27] MEDS: ASPIRIN EC 81 MG TABLET PO (08:21)
[2024-02-27] MEDS: FAMOTIDINE 20 MG TABLET PO (08:21)
[2024-02-27] MEDS: GABAPENTIN 300 MG CAPSULE PO (08:21)
[2024-02-27] MEDS: CLOPIDOGREL 75 MG TABLET PO (08:21)
[2024-02-27] MEDS: HEPARIN 5,000 UNIT/ML VIAL 5000 UNIT SUBCUT (08:22)
--- NOTE | 2024-02-27 09:45 | P.DS_ITS ---
History of Present Illness History of Present Illness Chief complaint: stroke--cant stand Narrative: Johan Thomas is a 73 YO M with a history of HTN, DM2, dyslipidemia, spinal stenosis s/p cervical fusion, ocular HTN, bladder cancer, and obstructive sleep apnea. He is presenting today with s/s of a TIA. He was eating lunch and started to feel warm, after that he became diaphoretic began experiencing severe nausea and had ataxic gait. He was brought in to the ED via ambulance. Patient denies fever, vomiting, headache, CP, or SOB. His symptoms have now resolved. Discharge Providers Provider Date of admission: 02/26/24 16:36 Discharge Date: 02/27/24 Discharge provider: Stephen Meraz DO Summary Hospital Course Discharge Diagnosis: # possible TIA -Monitor for any residual neurologic deficits, NIH 1 in ED -Start Aspirin and plavix x21 days per teleneuro -Allow permissive HTN- hold home Lisinopril -MRI brain negative -a1c normal and LDL 46 -Echocardiogram reasurring, EF 55-60% -CTA showed 70% narrowing of the left carotid artery, ASA/statin as above # PABLO versus CKD -creatinine 2, baseline unknown -IVF and monitor # SHITAL -continue CPAP # HTN -holding lisinopril for now # DM2 -hold metformin -SSI # HLD -LDL in good range -continue statin # cervical stenosis -tele neuro recommended MRI cervical -MRI cervical showed prior fusions and high grade stenosis without cord edema -continue gabapentin Hospital Course: Admitted for possible TIA. Workup normal including MRI and echo. CTA neck showed 70% narrowing of L carotid. Placed on DAPT and discharged home. Exam Vital Signs (past 8 hours): - 02/27/24 04:45 02/27/24 08:00 Temperature 97.7 F 97.8 F Pulse Rate 72 79 Respiratory Rate 19 16 Blood Pressure 109/48 L 146/61 H Pulse Oximetry 95 98 Oxygen Flow Rate 0 Oxygen Delivery Method Room Air,CPAP Oxygen Flow Rate 0 Narrative Exam Narrative: GEN: NAD, sitting upright and answers questions appropriately CV: RRR, no murmurs PULM: clear to auscultation b/l NEURO: alert and oriented times 3. Cranial nerves II-XII are intact Objective Labs 02/27/24 04:59 02/27/24 04:59 Labs: Laboratory Results - last 24 hr 02/26/24 02/27/24 14:39 04:59 WBC 10.3 7.2 RBC 4.66 4.01 L Hgb 13.6 11.7 L Hct 40.9 L 35.0 L MCV 87.8 87.3 MCH 29.2 29.2 MCHC 33.3 33.4 RDW 15.1 H 15.3 H Plt Count 313 216 Neut % (Auto) 60.6 73.2 Lymph % (Auto) 25.9 15.7 L [place] % (Auto) 10.0 8.8 Eos % (Auto) 2.7 1.7 L Baso % (Auto) 0.8 0.6 Neut # (Auto) 6200 5300 Lymph # (Auto) 2700 1100 [place] # (Auto) 1000 H 600 Eos # (Auto) 300 100 Baso # (Auto) 100 0 PT 10.6 INR 0.9 APTT 29 Sodium 140 137 Potassium 5.0 4.9 Chloride 107 107 Carbon Dioxide 18 L 25 BUN 37 H 34 H Creatinine 2.05 H 1.33 H Estimated GFR 33 L 56 L BUN/Creatinine Ratio 18.0 25.6 H Glucose 153 H 94 Hemoglobin A1c 5.5 Calcium 9.3 8.9 Total Bilirubin 0.5 AST 26 ALT 22 Alkaline Phosphatase 64 Total Creatine Kinase 189 H Troponin I < 0.012 Total Protein 8.0 Albumin 4.9 Globulin 3.1 Albumin/Globulin Ratio 1.6 Triglycerides 278 H Cholesterol 138 L LDL Cholesterol, Calc 46 HDL Cholesterol 36 L TSH 8.00 H PFS Medical History (Updated 02/26/24 @ 17:44 by Vernell Sarah, SILVA) Ocular hypertension Hypertension Diabetes mellitus Hyperlipemia Skin cancer Bladder cancer Carpal tunnel syndrome, bilateral Rotator cuff arthropathy of right shoulder Neck problem Surgical History (Updated 02/26/24 @ 17:41 by Vernell Sarah, SILVA) Status post prostatectomy Status post fusion of wrist History of ankle fusion History of total knee arthroplasty Status post hip replacement Social History household members: spouse Smoking Status: Former smoker alcohol intake: current Discharge Plan Discharge Plan Patient Disposition: Home Provider Discharge Comment: We did not discover a stroke thankfully. However it may have been a TIA so you will now be on aspirin indefinitely plus plavix for only 3 weeks then stop. Continue your statin. Discharge orders & Medications Prescriptions: New clopidogrel 75 mg Tablet 75 mg PO DAILY 19 Days Qty: 19 0RF Rx Instructions: start on 02/27 aspirin 81 mg Tablet,Delayed Release (Dr/Ec) 81 mg PO DAILY Qty: 30 0RF Continued latanoprost 0.005 % Drops 1 drp EYE-BOTH BEDTIME famotidine 20 mg Tablet 20 mg PO DAILY metformin 1,000 mg Tablet 1,000 mg PO BID gabapentin 300 mg Capsule 300 mg PO BID omeprazole 20 mg Capsule,Delayed Release(Dr/Ec) 20 mg PO DAILY diclofenac sodium 75 mg Tablet,Delayed Release (Dr/Ec) 75 mg PO BID pravastatin 20 mg Tablet 20 mg PO BEDTIME lisinopril 40 mg Tablet 40 mg PO DAILY diclofenac sodium 1 % Gel 2 g TOPICAL QID Rx Instructions: apply to single elbow, wrist or hand; for hand includes palm/fingers/back of hand Visit Report/Discharge Packet Stand Alone Forms: Patient Portal/API, Stroke Signs & Symptoms Discharge Data Attending Provider: Stephen Meraz Admit Date/Time: 02/26/24 16:36 Quality VTE Deep Vein Thrombosis/Pulmonary Embolism Present on Admission: No
--- NOTE | 2024-02-27 11:53 | PC.NURSE ---
Patient is A&OX4 this a.m. VSS, afebrile, on RA. NIH score remains zero. He ambulates using FWW, due to stiff fused ankles, slightly unsteady at baseline. He denies any vision changes, dizziness, KOTHARI, numbness/tingling to extremties or other neuro changes.He completed echo at bedside this a.m. He is evaluated by MD at bedside and when results of echo completed he was cleared for discharge home today with family. Patient provided with new medication education by pharmacy, and verbalizes understanding of medications. He is given stroke education and acknowledges understanding of s/sx of stroke and action to take. He is via w/chescorted by RN to private vehicle with his spouse and family friends with all of his belongings including his CPAP machine at 1135 this a.m.
[2024-02-29 05:25] LABS: Free T4, Direct Thyroxine 0.94 ng/dL (0.78-2.19)
== END 2024-02-27 11:37 | disposition home or self-care (01) ==
LOC: ED 15:42 → AC 16:36
PROVIDERS: Admitting Provider Student in an Organized Health Care Education/Training Program; Emergency Provider Emergency Medicine; Referring Provider Emergency Medicine; Visit Provider Student in an Organized Health Care Education/Training Program
DX: R27.0 Ataxia, unspecified (principal); R42 Dizziness and giddiness; R29.701 NIHSS score 1; E11.9 Type 2 diabetes mellitus without complications; Z79.84 Long term (current) use of oral hypoglycemic drugs; I10 Essential (primary) hypertension; G47.33 Obstructive sleep apnea (adult) (pediatric); E78.5 Hyperlipidemia, unspecified
CPT/HCPCS: 36415; 70450; 70496; 70498; 70551; 72141; 80048; 80053; 80061; 82550; 83036; 84439; 84443; 84484; 85025; 85610; 85730; 93005; 93010; 93306; 96360; 96372; 99285; G0378; A9270; J1644